=== PATIENT | female | born 1950 ===

== ENCOUNTER 2016-10-28 08:40 | Day surgery (SDC) | payer MEDICARE, MEDICAID ==
[2016-10-28 09:31] VITALS: BMI 31.8
[2016-10-28 09:51] VITALS: TEMP 97.7
[2016-10-28] MEDS ORDERED: Propofol 10 mg/ml Inj (20 ML) ONE (10:48)
[2016-10-28 11:47] VITALS: O2SAT 100
[2016-10-28 12:13] VITALS: BP 115/50; PULSE 58; RESP 12
== END 2016-10-28 13:40 | disposition home or self-care (01) ==
LOC: C.ENDO 08:40
PROVIDERS: ATTEND Internal Medicine Gastroenterology
DX: D12.3 Benign neoplasm of transverse colon (principal); K21.9 Gastro-esophageal reflux disease without esophagitis; K64.8 Other hemorrhoids; K29.70 Gastritis, unspecified, without bleeding; K31.7 Polyp of stomach and duodenum
CPT/HCPCS: 43270; 45388; 82948; 88305; 88312; 88342; J2704